=== PATIENT | female | born 1965 | race African-American/Black ===

== ENCOUNTER 2016-10-06 15:17 | Emergency (ER) | payer OTHER, BC ==
[~2016-10-06] VITALS: Ht 162.6 cm; Wt 74.8 kg
[2016-10-06] MEDS ORDERED: diazePAM 5 MG TABLET PO ONE (15:45)
[2016-10-06] MEDS ORDERED: IBUPROFEN 800 MG TABLET. PO ONE (15:45)
[2016-10-06] MEDS ORDERED: oxyCODONE/APAP 5/325 1 TAB TABLET PO ONE (15:45)
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
[2016-10-06 17:28] VITALS: BP 132/82
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
[2016-10-06] MEDS ORDERED: HYDR-971 PO (17:40)
[2016-10-06] MEDS ORDERED: DIAZ5TAB PO (17:40)
== END 2016-10-06 17:48 | disposition home or self-care (01) ==
LOC: ER 16:27
DX: S76.012A Strain of muscle, fascia and tendon of left hip, initial encounter (principal); S86.812A Strain of other muscle(s) and tendon(s) at lower leg level, left leg, initial encounter; S13.4XXA Sprain of ligaments of cervical spine, initial encounter; S09.90XA Unspecified injury of head, initial encounter; R42 Dizziness and giddiness; M19.90 Unspecified osteoarthritis, unspecified site; J45.909 Unspecified asthma, uncomplicated; I10 Essential (primary) hypertension; G43.909 Migraine, unspecified, not intractable, without status migrainosus; M41.9 Scoliosis, unspecified; V89.2XXA Person injured in unspecified motor-vehicle accident, traffic, initial encounter; Y92.413 State road as the place of occurrence of the external cause; Y93.89 Activity, other specified; Y99.9 Unspecified external cause status
CPT/HCPCS: 70450; 72125; 72131; 73502; 73562; 81025; 84703; 99284-25

== ENCOUNTER → 2016-11-24 | Outpatient (CLI) | payer BC ==
[~2016-11-24] MED LIST: DIAZ5TAB PO; HYDR-971 PO
--- NOTE | 2016-11-24 17:33 | KCIC ---
EXAM: Lumbar spine MRI without contrast. HISTORY: Pain. TECHNIQUE: Multiplanar, multisequence magnetic resonance imaging of the lumbar spine was performed without contrast. COMPARISON: None. FINDINGS: There is mild lumbar levoscoliosis and hyperlordosis. There is minimal grade 1 anterolisthesis of L4 and L5 and L5 on S1, measuring 1 to 2 mm. The vertebral bodies are normal in height. There is mild degenerative endplate remodeling at multiple levels, primarily L5-S1. No suspicious osseous lesion is seen. The conus terminates at T12-L1. At L1-L2, L2-L3 and L3-L4, there is no stenosis. At L4-5, there is a disc bulge with bilateral foraminal annular tears and endplate remodeling. There is minimal left facet arthropathy. There is no stenosis. At L5-S1, there are bilateral foraminal extra foraminal disc osteophyte complexes superimposed on a disc bulge and endplate remodeling. There is minimal right facet arthropathy. There is mild right foraminal stenosis and abutment of the right greater than left exiting L5 nerve roots. IMPRESSION: 1. Minimal to mild degenerative changes of the lumbar spine, described in detail above. 2. No acute finding. Electronically signed by: Annia Lomeli MD (11/24/2016 5:30 PM)
== END | disposition home or self-care (01) ==
LOC: KCIC MRI 16:34
PROVIDERS: ATTEND Family Medicine
DX: M51.36 Other intervertebral disc degeneration, lumbar region (principal)
CPT/HCPCS: 72148

== ENCOUNTER → 2017-04-17 | Outpatient (CLI) | payer OTHER, BC ==
[~2017-04-17] MED LIST changes: +CYCL10TA2 PO; +FLUT9.9S NS; +HYDR12.53 PO; +IOHEXOL 180 MG/ML 10 ML VIAL. ONE; +LORA10TA68 PO; +methylPREDNISolone ACETATE 40 MG/ML VIAL. ONE; +methylPREDNISolone ACETATE 80 MG/ML VIAL. ONE
--- NOTE | 2017-04-17 19:06 | PAIN ---
DATE OF SERVICE: 04/17/2017 DIAGNOSES: Lumbar radiculopathy with lumbar degenerative disk disease and low back pain. HISTORY OF PRESENT ILLNESS: The patient is a 51-year-old female who returns for followup status post initial evaluation and preauthorization for lumbar epidural steroid injection. The patient returns today reporting still significant pain in the low back and right greater than left lower extremities, mainly in the posterior gluteus, posterolateral thighs, posterior calf, lateral thighs and medial knees bilaterally as well as the anterior thigh. The patient reports it is worse with walking, standing, changing positions, worse with sitting as well. The patient reports no new motor or sensory deficits, no new bowel or bladder incontinence, has been sleeping well at night. The patient's pain is much better with lying down, sleeps about 8 hours without interruption. The patient reports her pain is a 7 on a scale of 10 at its worst, 4 on average and a 3 at its least, is a 4 today. The patient reports it is aching, dull, stabbing, shooting with some tingling pain in the legs as well. The patient reports no new motor or sensory deficits, no new bowel or bladder incontinence or other complaints. PHYSICAL EXAMINATION: VITAL SIGNS: Today, the patient's blood pressure is 144/90, pulse 68, respirations 18, temperature is 98.9 degrees Fahrenheit, height is 5 feet 4 inches, weighs 175 pounds. GENERAL: The patient is awake, alert, oriented, appropriate, very pleasant demeanor. HEENT: Head shows normocephalic, atraumatic. Extraocular movements are intact, symmetrical. Oral cavity: Mucous membranes moist and pink. Dentition is intact. NECK: Shows anterior throat supple without palpable lymphadenopathy noted. Swallow reflex is symmetrical. CHEST: Shows normal on inspection. Breath sounds clear to auscultation bilaterally. HEART: Shows S1, S2 clear. No murmurs auscultated. ABDOMEN: Soft, nontender, nondistended. No palpable organomegaly is noted. No rebound or guarding demonstrated. BACK: Spine grossly in the midline. Lumbar paraspinous muscle shows symmetrical on inspection with normal lordotic curvature with palpation shows some moderate tenderness bilaterally in the mid and low lumbar distribution, but only diffusely without radiation. No tenderness over the sacrum or sacroiliac regions. EXTREMITIES: Lower extremities show deep tendon reflexes at 2+ in the patellar, 1+ tendo-calcaneus tendons are equal. Motor exam is strong with 5/5 dorsiflexion, extension, quadriceps and hamstring flexion and symmetrical. Peripheral pulses are 1+ posterior tibial. No peripheral edema is noted bilaterally. Options were discussed with the patient. At this time, the patient's old chart was reviewed as her current medication regimen and updated. Current review of systems is updated today as well. We will proceed with a lumbar epidural steroid injection today with fluoroscopic guidance. Risks were again discussed including, but not limited to bleeding, infection, possibility of epidural hematoma, subsequent neurological compromise, dural puncture, headaches, spinal cord and/or nerve damage, side effects of steroid medication and poor results regarding pain control. The patient understands and wished to proceed. The patient will return to clinic in approximately 2 weeks for followup, was counseled on return appointment, activity level and side effects to be aware of. DIAGNOSIS: Lumbar radiculopathy with lumbar degenerative disk disease and low back pain. PROCEDURE: Lumbar epidural steroid injection, translaminar approach at the L4-L5 level using C-arm fluoroscopic guidance under sterile prep and drape using local anesthetic. MEDICATION INJECTED: A total of 120 mg Depo-Medrol plus 10 mL preservative-free normal saline and 2 mL of Isovue for contrast. CONDITION AT DISCHARGE: Stable. The patient tolerated procedure well, had no complications. TAYLA CHAMBERS MD DR: SARA/mona JOB#: [id number] / [id number]
== END | disposition home or self-care (01) ==
LOC: PNCL 13:56
PROVIDERS: ATTEND Anesthesiology
DX: M51.16 Intervertebral disc disorders with radiculopathy, lumbar region (principal); I10 Essential (primary) hypertension; J40 Bronchitis, not specified as acute or chronic
CPT/HCPCS: 62323; J1030; J1040